=== PATIENT | male | born 1995 | race Caucasian/White ===

== ENCOUNTER 2017-12-12 11:22 | Emergency (ER) | payer SELFPAY ==
[2017-12-12 13:11] VITALS: BP 120/82
[2017-12-12] MEDS ORDERED: Lidocaine 1% MPF* 2 ML VIAL ONE (14:02)
[2017-12-12] MEDS: Azithromycin TAB* 250 MG PO ONE (14:07)
[2017-12-12] MEDS: cefTRIAXone VIAL(*) 250 MG VIAL IM ONE (14:07)
--- NOTE | 2017-12-12 14:20 | UC ---
Throat Pain/Nasal Moo HPI - HPI Summary HPI Summary: Pt presents with c/o nasal congestion, cough X 1 week. Pt also has known exposure to gonorrhea and is requesting STD testing. Denies dysura or penile discharge - History of Current Complaint Chief Complaint: UCGeneralIllness Stated Complaint: RUNNY NOSE,COUGH Time Seen by Provider: 12/12/17 13:33 Hx Obtained From: Patient Onset/Duration: Sudden Onset, Lasting Days, Still Present Severity: Mild Pain Intensity: 0 Cough: Nonproductive Associated Signs & Symptoms: Positive: Sinus Discomfort Related History: Seasonal Allergies - unsure - Epiglottits Risk Factors Epiglottis Risk Factors: Negative - Allergies/Home Medications Allergies/Adverse Reactions: Allergies Allergy/AdvReac Type Severity Reaction Status Date / Time No Known Allergies Allergy Verified 12/12/17 13:06 Home Medications: Home Medications NK [No Home Medications Reported] 12/12/17 [History Confirmed 12/12/17] PMH/Surg Hx/FS Hx/Imm Hx Previously Healthy: Yes - Surgical History Surgical History: None - Family History Known Family History: Positive: Cardiac Disease - Social History Occupation: Student [employer] Lives: Dormitory/Roommates Alcohol Use: Weekly Substance Use Type: None Smoking Status (MU): Light Every Day Tobacco Smoker Type: Cigarettes Amount Used/How Often: 1 cigarette weekly Have You Smoked in the Last Year: Yes - Immunization History Vaccination Up to Date: Yes Review of Systems Constitutional: Negative Skin: Negative Eyes: Negative ENT: Sinus Congestion Respiratory: Cough Cardiovascular: Negative Gastrointestinal: Negative Genitourinary: Negative Motor: Negative Neurovascular: Negative Musculoskeletal: Negative Neurological: Negative Psychological: Negative Is Patient Immunocompromised?: No All Other Systems Reviewed And Are Negative: Yes Physical Exam Triage Information Reviewed: Yes Appearance: Well-Appearing Vital Signs: Initial Vital Signs Temp 98.2 F 12/12/17 13:04 Pulse 66 12/12/17 13:04 Resp 16 12/12/17 13:04 BP 120/82 12/12/17 13:04 Pulse Ox 100 12/12/17 13:04 Vital Signs Reviewed: Yes ENT Exam: Other ENT: Positive: Nasal congestion Dental Exam: Normal Neck exam: Normal Respiratory Exam: Normal Cardiovascular Exam: Normal Musculoskeletal Exam: Normal Neurological Exam: Normal Psychological Exam: Normal Skin Exam: Normal Throat Pain/Nasal Course/Dx - Differential Dx/Diagnosis Differential Diagnosis/HQI/PQRI: Influenza, URI Provider Diagnoses: URI. STD exposure Discharge - Sign-Out/Discharge Documenting (check all that apply): Patient Departure All imaging exams completed and their final reports reviewed: No Studies - Discharge Plan Condition: Stable Disposition: HOME Patient Education Materials: Viral Syndrome (ED) Referrals: [facility] [Outside] - If Needed No Primary Care Phys,NOPCP [Primary Care Provider] - - Billing Disposition and Condition Condition: STABLE Disposition: Home - Attestation Statements Provider Attestation: I was available for consult. This patient was seen by the GERI. The patient was not presented to, seen by, or examined by me. -Keri
== END 2017-12-12 14:29 | disposition home or self-care (01) ==
LOC: EDBD 11:22 → UCCORT 11:22
DX: J06.9 Acute upper respiratory infection, unspecified (principal); Z20.2 Contact with and (suspected) exposure to infections with a predominantly sexual mode of transmission; F17.210 Nicotine dependence, cigarettes, uncomplicated
CPT/HCPCS: 87491; 87591; 96372; 99202; A9270-GY; G0463; J0696